=== PATIENT | female | born 1970 | race Caucasian/White ===

== ENCOUNTER 2023-09-24 11:03 | Day surgery (SDC) | payer BC, SELFPAY ==
[2023-09-24 11:00] VITALS: BMI 22.3
[2023-09-24 11:05] VITALS: BMI 22.3
[2023-09-24 11:06] VITALS: BP 147/89
[2023-09-24 13:23] VITALS: BP 112/73
[2023-09-24 13:30] VITALS: BP 125/89
[2023-09-24 13:42] VITALS: BP 106/84
[2023-09-24 13:45] VITALS: BP 106/84
== END 2023-09-24 13:56 | disposition home or self-care (01) ==
LOC: SDS 11:03
PROVIDERS: ATTENDING PHYSICIAN Internal Medicine
DX: Z12.11 Encounter for screening for malignant neoplasm of colon (principal); K63.89 Other specified diseases of intestine; K57.30 Diverticulosis of large intestine without perforation or abscess without bleeding; K64.4 Residual hemorrhoidal skin tags
CPT/HCPCS: 45380; 88305

== ENCOUNTER → 2024-01-21 12:06 | Outpatient (REF) | payer BC, SELFPAY | LOC: WDC 12:06 | PROVIDERS: ATTENDING PHYSICIAN Obstetrics & Gynecology Gynecology; FAMILY PHYSICIAN Student in an Organized Health Care Education/Training Program | DX: Z12.31 Encounter for screening mammogram for malignant neoplasm of breast (principal) | CPT/HCPCS: 77063; 77067 ==

== ENCOUNTER → 2025-02-18 12:35 | Outpatient (REF) | payer BC, SELFPAY | LOC: WDC 12:35 | PROVIDERS: ATTENDING PHYSICIAN Obstetrics & Gynecology Gynecology; FAMILY PHYSICIAN Student in an Organized Health Care Education/Training Program | DX: Z12.31 Encounter for screening mammogram for malignant neoplasm of breast (principal) | CPT/HCPCS: 77063; 77067 ==